=== PATIENT | male | born 1990 | race Caucasian/White ===

== ENCOUNTER 2018-10-12 13:46 | Emergency (ER) | payer MEDICAID ==
[~2018-10-12] VITALS: Ht 172.7 cm; Wt 61.4 kg
[2018-10-12 13:52] VITALS: Ht 172.7 cm; Wt 61.4 kg
[2018-10-12] MEDS ORDERED: TORADOL10 MG PO (16:59)
[2018-10-12] MEDS ORDERED: CLEOCIN HCL300 MG PO (16:59)
== END 2018-10-12 17:26 | disposition home or self-care (01) ==
LOC: D.ER 13:46
DX: L03.011 Cellulitis of right finger (principal)